=== PATIENT | male | born 1975 | race Two or more races ===

== ENCOUNTER 2024-06-03 12:51 | Emergency (ER) | payer OTHER, SELFPAY ==
[2024-06-03 13:16] VITALS: BP 160/77; PULSE 61; RESP 16; TEMP 37.1; O2SAT 97; BMI 30.9
--- NOTE | 2024-06-03 13:43 | XR_ITS ---
Examination: Fingers, left hand fifth digit 3 views Technique: AP, oblique, lateral views left hand fifth digit 3 views. Exam date and time: June 03, 2024 1400 hours INDICATIONS: Laceration to the fifth digit today with fifth digit pain. FINDINGS: No acute fracture No dislocation No opaque foreign body IMPRESSION: No opaque foreign body
[2024-06-03] MEDS: LIDOCAINE HCL 1% 20 ML VIAL INFL (14:14)
[2024-06-03] MEDS: DIPHTH,PERTUSS(ACELL),TET VAC 0.5 ML VIAL IMi (14:14)
--- NOTE | 2024-06-03 14:15 | EDNOTE_ITS ---
<Statement entered by Zee Andrea MD - 06/03/24 16:17> As co-signing physician, I was present and available for consult prn. I concur with the plan and care as documented by the midlevel provider. 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 while cutting an avocado today patient pain a laceration to left hand fifth digit unknown last tetanus Limitations: no limitations Related Data Previous Rx's ?Medication ?Instructions ?Recorded cephalexin 500 mg capsule 500 mg PO BID 7 days #14 caps 06/03/24 ibuprofen 800 mg tablet 800 mg PO TID PRN pain #30 tabs 06/03/24 Allergies Allergy/AdvReac Type Severity Reaction Status Date / Time No Known Allergies Allergy Verified 06/03/24 12:52 Review of Systems Review of Systems Systems Reviewed: All systems reviewed, normal except as documented Constitutional Constitutional: Reports system reviewed and no additional complaints, except as documented, Denies fever(s) and Denies headache(s) Eyes Eyes: Reports system reviewed and no additional complaints, except as documented and Denies blurry vision ENT Ears, Nose, Mouth, and Throat: Reports system reviewed and no additional complaints, except as documented, Denies headache(s), Denies nasal congestion and Denies nasal discharge Cardiovascular Cardiovascular: Reports system reviewed and no additional complaints, except as documented, Denies chest pain and Denies dyspnea Respiratory Respiratory: Reports system reviewed and no additional complaints, except as documented, Denies chest congestion, Denies cough and Denies dyspnea Gastrointestinal Gastrointestinal: Reports system reviewed and no additional complaints, except as documented and Denies abdominal pain Integumentary/Breasts Skin/Breast: Reports system reviewed and no additional complaints, except as documented, Denies rash and Reports wounds (Laceration left hand fifth digit) Neurologic Neurologic: Reports system reviewed and no additional complaints, except as documented, Reports as per HPI and Denies headache(s) Past Medical History Past Medical History CARDIAC: Negative Congestive Heart Failure RESPIRATORY: Negative Chronic Obstructive Pulmonary Disease (COPD) GENITOURINARY: Negative Renal Disease ENDOCRINE: Positive Diabetes Mellitus Type 1; Negative Diabetes Mellitus Type 2 Social History SMOKING STATUS: Light (< 1 pack/day) ED Exam General Limitations: Present no limitations General appearance: Present alert and in no apparent distress Head Head exam: Present atraumatic Eye Eye exam: Present normal appearance, PERRL and EOMI ENT ENT exam: Present normal exam, normal oropharynx and mucous membranes moist Neck Neck exam: Present normal inspection, full ROM and trachea midline Chest Chest inspection: Present normal inspection and symmetric chest wall rise Respiratory Respiratory exam: Present normal lung sounds bilaterally Cardiovascular Cardiovascular exam: Present regular rate, normal rhythm and normal heart sounds Abdominal Exam Abdominal exam: Present soft and normal bowel sounds Extremities Exam Extremities exam: Present full ROM, tenderness, normal capillary refill and other (Laceration left hand for digit) Back Exam Back exam: Present normal inspection and full ROM Neurological Exam Neurological exam: Present alert, oriented X3 and CN II-XII intact Psychiatric Psychiatric exam: Present normal affect and normal mood Skin Skin exam: Present warm, dry and other (Laceration left hand fifth digit) Course Quality Measures none Orders Category Date Time Status Set Up Suture Tray STAT Care 06/03/24 13:22 Completed Wound Care NOW Care 06/03/24 13:22 Completed XR finger LT min 2V Stat Exams 06/03/24 13:43 Completed Lidocaine 1% 20 ml [Xylocaine 1% 20 ML] Med 06/03/24 13:22 Discontinued 20 ml INFL X1 ONE Tet,Diphth,Pertuss(Acell)-Tdap [Boostrix Vacc] Med 06/03/24 13:22 Discontinued 0.5 ml IMI .ONCE ONE Vital Signs Vital signs: Vital Signs Temperature 98.7 F 06/03/24 13:16 Pulse Rate 61 06/03/24 13:16 Respiratory Rate 16 06/03/24 13:16 Blood Pressure 160/77 H 06/03/24 13:16 Pulse Oximetry (%) 97 06/03/24 13:16 Oxygen Delivery Method Room Air 06/03/24 13:16 O2 saturation 97% room air within normal limits Procedures -ED Laceration Laceration 1: Site: upper extremity Side (If applicable): left Size (cm): 4 Description: irregular Depth: simple, single layer Local Anesthetic: lidocaine 1% Amount of anesthesia used (mL): 5 Pre-repair: wound explored and irrigated extensively Skin layer closed with: nylon Size (cm): 5-0 Number of sutures: 8 Technique: simple, interrupted Splint Fabrication: Pre-Fabricated Type: Finger Protector Reason for Splint: Optimal Positioning and Pain Management Site condition: Pain Circulation Distal to Splint: Yes Movement Distal to Splint: Yes Senation Distal to Splint: Yes Tolerance: Tolerates Well Wound / Laceration MDM Narrative MDM Narrative:: 49-year-old male presents emergency department 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 while cutting an avocado today patient pain a laceration to left hand fifth digit unknown last tetanus On exam patient well-appearing patient's not appear ill or toxic Exam patient is laceration left hand fifth digit on the palmar aspect patient has full range of motion of the digit evidence of tendon or ligamentous injury X-ray of the left fifth digit obtained no acute fracture dislocation noted no acute foreign body Wound irrigated copiously laceration repaired 8 sutures applied no active bleeding at time of discharge Patient placed in a finger splint Patient discharged home in no distress to follow-up with Workmen's Compensation doctor in the next 24 to 48 hours and for any worsening symptoms to return to the ER immediately Patient data External records reviewed:: [facility] previous records Clinical information provided by:: patient Social determinants that could affect healthcare access:: none Patient has the following chronic illnesses:: None How is presenting disease/condition affected by chronic disease/condition?: no chronic disease Evaluation data The following diagnostics were reviewed and interpreted by me:: radiology exam(s) Lab and/or radiology exams considered but not ordered:: Radiology obtain Interpretation Summary: Reviewed by me Medications / Prescriptions Medications or Prescriptions considered but not ordered:: Given Medication administrations:: Medication Administration History Discontinued Medications Diphtheria/Tetanus/Acell Pertussis (Diphth,Pertuss(Acell),Tet Vac 0.5 Ml Vial) 0.5 ml IMi .ONCE ONE Stop: 06/03/24 13:23 Last Admin: 06/03/24 14:14 Dose: 0.5 ml Documented By: TREV Lidocaine HCl (Lidocaine Hcl 1% 20 Ml Vial) 20 ml INFL X1 ONE Stop: 06/03/24 13:23 Last Admin: 06/03/24 14:14 Dose: 20 ml Documented By: TREV Given Consultations Consultation(s) initiated? (list below): No Diagnosis Wound Differential Diagnosis: laceration, abrasion and avulsion of skin Most likely diagnosis given after review of the tests above:: Laceration Admission Indicated Admission indicated?: not indicated Admission Request Was there a request for admission?: No Disposition Plan Disposition Plan: Discharge Discharge Attestation Discharge Attestation: The patient and all family members were given an opportunity to ask questions and understood the discharge instructions. Discharge instructions specifically effects, indications for sooner follow up or return to the emergency department, and the expected course of current diagnosis. Patient condition: Stable Discharge Plan Plan Patient Disposition: HOME (Self Care) Disposition Comment: Stable Prescriptions/Referrals Prescriptions/Med Rec: New ibuprofen 800 mg tablet 800 mg PO TID PRN (Reason: pain) Qty: 30 0RF cephalexin 500 mg capsule 500 mg PO BID 7 Days Qty: 14 0RF Referrals: No Primary/Family,Physician [Primary Care Provider] - In 1 week Problem List Clinical Impression: Laceration of finger of left hand, Work related injury Patient/Caregiver Discharge Instructions Education Materials: ED Laceration: All Closures Additional Instructions: Please follow up with your primary care doctor in the next 24-48hrs for any worsening symptoms return here immediately Print Language: Barbadian Stand Alone Forms: Aleksandra Award Info., Patient Portal Info Letter PA/PEDRO Supervising Physician MARJORIE/PEDRO Supervising Physician: Dr. ANDREA
== END 2024-06-03 14:35 | disposition home or self-care (01) ==
PROVIDERS: Emergency Provider Emergency Medicine
DX: S61.217A Laceration without foreign body of left little finger without damage to nail, initial encounter (principal); W26.0XXA Contact with knife, initial encounter; Y93.G1 Activity, food preparation and clean up; Y92.89 Other specified places as the place of occurrence of the external cause; Y99.0 Civilian activity done for income or pay; Z23 Encounter for immunization
CPT/HCPCS: 12002; 73140; 90471; 90715; 99283; J3490